=== PATIENT | male | born 2000 | race African-American/Black ===

== ENCOUNTER 2023-03-22 02:27 | Emergency (ER) | payer OTHER ==
[2023-03-22 02:43] VITALS: BP 142/86; PULSE 99; RESP 18; TEMP 99.8; BMI 31.2
[2023-03-22] MEDS: IBUPROFEN 400 MG TABLET (FP) PO ONE (02:53)
[2023-03-22] MEDS ORDERED: IBUPROFEN 600 MG TABLET (FP) PO ONE (02:54)
[2023-03-22 03:28] LABS: THROAT:GRP A STREP NOT DETECTED (NOTDETECTED)
[2023-03-22] MEDS ORDERED: guaiFENesin/D-METHORPHAN HB 10 ML UNIT-DOSE CUPS ONE (03:57)
[2023-03-22] MEDS: guaiFENesin 200 MG/10 ML 10 ML UNIT-DOSE CUPS PO ONE (03:58)
[2023-03-22] MEDS: guaiFENesin/D-METHORPHAN HB 10 ML UNIT-DOSE CUPS PO ONE (03:58)
== END 2023-03-22 03:58 | disposition home or self-care (01) ==
LOC: JER 02:27
DX: R50.9 Fever, unspecified (principal); J02.9 Acute pharyngitis, unspecified; R09.89 Other specified symptoms and signs involving the circulatory and respiratory systems; J10.1 Influenza due to other identified influenza virus with other respiratory manifestations; Z20.822 Contact with and (suspected) exposure to COVID-19
CPT/HCPCS: 0241U-QW; 87651; 99283-25